=== PATIENT | female | born 1950 | race Caucasian/White ===

== ENCOUNTER 2016-12-15 17:32 | Emergency (ER) | payer MEDICARE, BC ==
[~2016-12-15] VITALS: Ht 154.9 cm; Wt 83.0 kg
[~2016-12-15 17:32] MED LIST: ALLOPURINOL100 MG PO; ATENOLOL100 MG OR; DEPAKOTE250 MG PO; FUROSEMIDE 40MG40 M1 PO; LIPITOR40 M1 PO; LOTREL 10 MG-401 CAP PO; MYSOLINE50 MG PO; PREMARIN0.625 MG PO; WELLBUTRIN XL150 MG PO
[2016-12-15] MEDS ORDERED: DEPAKOTE ER250 MG PO (17:53)
--- NOTE | 2016-12-15 17:53 | Emergency Room Report ---
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 Clinical Suspician of Infection? Mental Status: Sepsis Risk: Have you (or family members/close friends) recently traveled outside the [place]? If Yes, where/when: Have you had exposure to infectious disease within the past month? TB? Other? Specify: 66 years old white female with seizure claims that she has fallen out of bed yesterday. She complains of low back pain and a bruised LEFT foot. She claims that she is unable to walk because her knees give out. She denies having chest pain that was breathing on head injury. She denies having neck pain. She requested to be seen by the ER. Source patient, RN notes reviewed, family Exam Limitations no limitations ALLERGIES Coded Allergies: Sulfa (Sulfonamide Antibiotics) (12/15/16) Home Medications Reported Medications Primidone (Mysoline) 50 MG PO QHS AMLODIPINE BESYLATE/BENAZEPRIL (Lotrel 10-40 MG Capsule) 1 CAP PO DAILY Atenolol (Atenolol) 100 MG OR DAILY Atorvastatin Calcium (Lipitor 40MG) 40 MG PO DAILY Conjugated Estrogens (Premarin) 0.625 MG PO DAILY Allopurinol 100 MG PO DAILY BUPROPION HCL (Wellbutrin XL 150MG) 150 MG PO DAILY Divalproex Sodium (Depakote) 500 MG PO TID Furosemide 40 MG PO DAILY #30 Divalproex Sodium (Depakote ER) 250 MG PO DAILY History Medical History General Angina: Yes [place]: No Hypertension? Yes Hyperlipidemia? Yes CHF? No COPD? No Asthma? No Hernia? No CVA? No Seizures? Yes Diabetes? No UTI? No Stones? No GB Disease: No Hepatitis? No Cataracts? Yes Glaucoma? No MRSA? No TB? No Cancer? No Immunization Hx DT/Tetanus > 10 YRS Flu THISFLUSEA Pneumonia REFUSES Surgical Hx Previous Surgery?Y HYSTERECTOMY TUBES IN EARS TONSILS REMOVED Family History Family Hx Diabetes Yes CAD Yes Hypertension Yes Hyperlipidemia Yes Cancer Yes TB No Social History Alcohol Alcohol: No Review of Systems All Other Systems Reviewed and Negative Constitutional no symptoms reported Eyes no symptoms reported ENT no symptoms reported. Respiratory no symptoms reported Cardiovascular no symptoms reported Gastrointestinal no symptoms reported Genitourinary no symptoms reported. Musculoskeletal see HPI, back pain, other (LEFT foot swelling and bruisin) Skin no symptoms reported Psychiatric/Neurological no symptoms reported Physical Exam Vital Signs Vital Signs Date Time Temp Pulse Resp B/P Pulse O2 O2 Flow FiO2 Ox Delivery Rate 12/15 1850 18 12/15 1743 98.0 66 18 / 100 No signs of injuries. Central alopecia. ([facility]) - WBC >12,000 or <4,000 or 10% bands? 2 or more SIRS Criteria Met? B/P: MAP: Creatinine >2.0? UA output<0.5ml/kg/hr for 2 hrs? Platelet count >100,000? Lactate >2.0mmol/1? INR >1.2 or PTT > than 60 sec? Evidence of Organ Dysfunction? Provider documented clinical suspician of infection? Sepsis Criteria Count: Sepsis Risk: General Appearance normal appearance, WD/WN, no apparent distress (the patient provided history) Eye Exam - bilateral eye normal exam, bilateral eye PERRL, bilateral eye EOMI Ear, Nose, Throat hearing grossly normal, normal ENT inspection Neck normal inspection (normal cervical spine tenderne), non-tender, supple, full range of motion Respiratory Status Yes: trachea midline, chest symmetrical, non tender chest. No: respiratory distress. Lung Sounds bilateral: normal breath sounds, lungs clear. Cardiovascular normal exam, regular rate/rhythm, no peripheral edema, no gallop, no JVD, no murmur, no rub, normal peripheral pulses Peripheral Pulses Pulses normal Yes Gastrointestinal normal bowel sounds, normal exam, non tender, soft, no organomegaly Back normal inspection, no CVA tenderness, no vertebral tenderness, lumbar spine tenderness Extremities non-tender, normal range of motion, normal inspection, swelling, large bruising and swelling on the dorsum of the LEFT foot Strength 5 Upper Ext (L), 5 Upper Ext (R), 5 Lower Ext (L), 5 Lower Ext (R) Rectal deferred Nurse present during exam? 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 Reflexes Reflexes normal Yes Mental status normal mood/affect Skin intact, normal color, warm/dry Lymphatic no adenopathy Medical Decision Making LABS/Meds/Orders Pt receiving controlled substance in ED? No Results/Orders Laboratory Tests 12/15/160: B-Natriuretic Peptide 573 H 12/15/16 1900: Sodium 142, Potassium 3.7, Chloride 107, Carbon Dioxide 25, BUN 22 H, Creatinine 1.1 H, Estimated Creat Clear 67, Estimated GFR (MDRD) 50 L, Glucose 107 H, Calcium 9.1, Total Bilirubin 0.5, AST 36, ALT 23, Alkaline Phosphatase 48, Troponin I < 0.02, Total Protein 6.7, Albumin 3.5, Globulin 3.2, Albumin/ Globulin Ratio 1.1, WBC 8.4, RBC 3.73 L, Hgb 11.7 L, Hct 34.2 L, MCV 91.9, RDW 14.4, Plt Count 180, MPV 8.2, Gran % 76.0, Gran # 6.4, Lymphocytes % 15.9, Monocytes % 7.4, Eosinophils % 0.2, Basophils % 0.4, Lymphocytes # 1.3, Monocytes # 0.6, Eosinophils # 0.0, Basophils # 0.0, PUBS MCHC 34.3, MCH 31.5 H , Valproic Acid 55.5 12/15/16 1745: Sodium Cancelled, Potassium Cancelled, Chloride Cancelled, Carbon Dioxide Cancelled, BUN Cancelled, Creatinine Cancelled, Estimated Creat Clear Cancelled, Estimated GFR (MDRD) Cancelled, Glucose Cancelled, Calcium Cancelled, Total Bilirubin Cancelled, AST Cancelled, ALT Cancelled, Alkaline Phosphatase Cancelled, Troponin I Cancelled, Total Protein Cancelled, Albumin Cancelled, Globulin Cancelled, Albumin/Globulin Ratio Cancelled Current Medication Orders Sig/Humberto Start time Last Medication Dose Route Stop Time Status Admin Ketorolac 30 MG ONCE ONE 12/15 1844 DC 12/15 Tromethamine IM 12/15 1845 1850 Ketorolac 30 MG ONCE ONE 12/15 1844 CAN Tromethamine IM 12/15 1845 Clonidine HCl 0 .STK-MED ONE 12/16 1843 DC .ROUTE Iopamidol 75 ML ONCE ONE 12/15 1829 UNV 12/15 IV 11/05 1831 1824 Sodium Chloride 10 ML PRN PRN 12/15 1830 UNV 12/15 IV 12/15 1954 1824 Clonidine HCl 0.1 MG ONCE ONE 12/15 1800 DC 12/15 PO 12/15 1801 1849 Ketorolac 30 MG ONCE ONE 12/15 1800 CAN Tromethamine IV 12/15 180 Sodium Chloride 1,000 ML .Q1H1M 12/15 1800 DC IV 12/15 1900 Sodium Chloride 10 ML PRN PRN 12/15 1800 DC IV 12/16 1746 Orders Procedure Date/time Status DIET-NOTHING BY MOUTH 12/16 B Active ELECTROCARDIOGRAM REQUEST 12/15 1752 Active BRAIN NATRIURETIC PEPTIDE 12/15 175 Complete ORTHOSTATIC B/P 12/15 174 Active VALPROIC ACID (DEPAKENE) 12/15 1746 Complete URINALYSIS/COMPLETE 12/15 1746 Active TROPONIN I 12/15 1746 Complete COMPLETE METABOLIC PANEL 12/[address] HEAD REQ 12/[address] SCAN REQ 12/15 1744 Active PELVIS AP ONLY 12/15 1744 Active LUMBAR SPINE 5 VIEWS 12/15 1744 Active KNEE-3 VIEWS-RT 12/15 1744 Active KNEE-3 VIEWS-LT 12/15 1744 Active FOOT-LT-3 VIEWS 12/15 1744 Active CHEST-AP VIEW ONLY 12/15 1744 Active CBC WITH AUTO DIFF 12/15 1744 Complete 12 LEAD EKG-RACHEL (INITIAL) 12/15 UNK Active CM/EKG CM/EKG EKG rate, NSR, rhythm, no evid. of ischemic chgs, no ectopy, normal QRS, normal TN, normal EKG Comments Normal sinus rhythm 66/m baseline artifact no acute finding Departure Departure Time of Disposition 2004 Disposition DC Home or Self Care(routine) Clinical Impression Primary Impression: Foot fracture, left Secondary Impressions: Congestive heart disease, Non-compliance, Seizure disorder Condition STABLE Referrals Essie Carter MD Additional Instructions I discussed her findings with Dr. Carter who knows her very well, she does have multiple problems with medications that she does not take. 1- I discussed with the patietn her x rays with the foot fracture. 2- Walking boot per dr carter. 3- Dr. Carter will take care of her fracrtures as he said over the phone. 4- no lasix at this time and she will need to see Dr. dorsey in AM Discharge Counseling Counseled pt/family regarding diagnosis, test results, medications/RX, home care, follow up needs ED Critical Care Critical Care No If Critical Care minutes are documented, the time involved in the performance of seperately reportable procedures was not counted toward critical care time documented. I directly delivered medical care to this critically ill and/or injured patient. Timely evaluation and treatment was necessary to address the significant organ system(s) dysfunction present in this patient. at 2012
--- OUTSIDE RECORDS SUMMARY | 2016-12-15 18:06 | External Medical Summary Rpt | CCD ---
Author Author REGINO Address Unknown Phone Purpose Continuity of Care Document - through 2016
--- OUTSIDE RECORDS SUMMARY | 2016-12-15 18:06 | External Medical Summary Rpt | CCD ---
Author Author , REGINO Organization [employer] Address Unknown Phone [email or web address] Immunization Name Date Rout CVX Reac Dose Comm Prov Is Faci e tion ent ider Refu lity Give sed n Infl 09-2 Intr 135 0.5 Hist D049 No D049 uenz 5-20 amus mL oric 01 01 a, 17 cula al High r Info rmat Dose ion - Sour ce Unsp ecif ied Tdap 06-1 Intr 115 0.5 Hist D049 No D049 , 9-20 amus mL oric 01 01 Adso 17 cula al rbed r Info rmat ion - Sour ce Unsp ecif ied Zost 10-0 Subc 121 0.65 Hist WALM No WALM er 4-20 utan mL [facility] ART1 ART1 16 eous al 569 569 Info rmat ion - Sour ce Unsp ecif ied Infl 10-0 Intr 140 0.5 Hist WALM No WALM uenz 4-20 amus mL [facility] ART1 ART1 a, 16 cula al 569 569 P-Fr r Info ee rmat ion - Sour ce Unsp ecif ied
--- OUTSIDE RECORDS SUMMARY | 2016-12-15 18:06 | External Medical Summary Rpt ---
Author Author REGINO Saha, REGINO Saha Organization [employer] Address Unknown Phone Unavailable
--- OUTSIDE RECORDS SUMMARY | 2016-12-15 18:06 | External Medical Summary Rpt | CCD ---
Author Author , REGINO Organization REGINO Address Unknown Phone [email or web address] Immunization Name Date Rout CVX Reac Dose [...] WALM No WALM er 4-20 utan mL [facility] ART1 ART1 16 eous al 569 569 Info rmat ion - Sour ce Unsp ecif ied Infl 10-0 Intr 140 0.5 Hist WALM No WALM uenz 4-20 amus mL [facility] ART1 ART1 a, 16 cula al 569 569 P-Fr r Info ee rmat ion - Sour ce Unsp ecif ied
--- OUTSIDE RECORDS SUMMARY | 2016-12-15 18:06 | External Medical Summary Rpt | CCD ---
Author Author , REGINO LACY Address Unknown Phone [email or web address] Purpose Continuity of Care Document - through 2016
--- OUTSIDE RECORDS SUMMARY | 2016-12-15 18:06 | External Medical Summary Rpt | CCD ---
Author Author , REGINO LACY Address Unknown Phone [email or web address] Purpose Continuity of Care Document - through 2016
--- NOTE | 2016-12-15 18:53 | RADIOLOGY REPORT PS360 ---
CT CERVICAL SPINE W/O CONT HISTORY: PT FELL with cervical pain and headache. Fell out of bed Patient Age: 66 years: Female Ordering Physician: Soraya Azar MD TECHNIQUE: Helical CT scanning performed through the cervical spine with sagittal and coronal reconstructions on CT workstation. COMPARISON :None FINDINGS : The cervical spine intact intact with no fracture nor dislocation evident. Nonspecific straightening is most likely positional but can reflect muscle spasm of recent injury. Prevertebral soft tissues appear normal. C1-C2 relationships in appearance within normal limits. Facets appear intact bilaterally with some mild degenerative facet changes most evident to the right at C3/4 and to lesser degree C2/3 C4/5. Cervical spondylosis Degenerative disc changes are noted-. Most notable are the marked degenerative disc space narrowing along with marginal osteophytes at the C 4/5, and less evident C5-C6 followed by C6/7. C4/5.. Spondylosis with Diffuse posterior disc /osteophyte features. These appear slightly indents the anterior Aspect thecal sac and narrow the spinal canal yielding borderline to mild central canal stenosis. Most generous anterior marginal osteophytes most evident at this level. C5-C6. Likely small disc protrusion to the left indenting the left aspect of the thecal sac .. Again borderline to mild spinal stenosis. Minor foraminal encroachment at each of these levels bilaterally. C6/7 with disc space narrowing but no significant additional findings posteriorly. Other levels unremarkable. Apices the lungs with a fibrotic changes chronic changes noted. Likely smoker. Scattered small moderate nodes throughout the neck. IMPRESSION: No acute fracture nor subluxation cervical spine. Cervical spondylosis and Degenerative changes cervical spine as detailed in text.. Most notable degenerative disc space and spondylosis at C4/5 and C5/6.
--- NOTE | 2016-12-15 18:57 | RADIOLOGY REPORT PS360 ---
CT HEAD WITHOUT CONTRAST CT BONE WINDOWS included ORDERING PHYSICIAN : Soraya Azar MD PATIENT AGE: 66 years GENDER: Female PROCEDURE: Routine axial images headwithout contrast. Brain & bone windows HISTORY: PT FELL COMPARISON: October 2009 FINDINGS: No significant interval change since 2009 Cerebral atrophy which account for the mild prominence of the third and lateral ventricles. Vague suggestion of Minor chronic small vessel deep white matter changes likely present. Most notable surrounding the anterior horns and less evident elsewhere deep white matter matter cerebral hemispheres bilateral . No acute intracranial findings. No hemorrhage. No mass effect or mass lesion. No subdural nor extra-axial collection. Ventricles & basal cisterns appear satisfactory. Pepper & white matter patterns satisfactory. The posterior fossa appear satisfactory and unremarkable. The skull is intact. The visualized portions of the paranasal sinuses are clear. Right Mastoid air cells clear unremarkable. Opacification of the inferior left mastoid air cells reflecting a minor subtle left mastoid effusion. The more superior mastoid air cells clear on left.,. Mastoid air cells minimally developed bilaterally. Middle ear & IACs are unremarkable bilateral. IMPRESSION: No acute intracranial findings. Stable CT headCompared to 2009. Mild cerebral atrophy. . Minor left inferior mastoid effusion incidentally noted
[2016-12-15 19:07] LABS: HEMOGLOBIN 11.7 g/dL (12.2-16.2); LYMPH # 1.3 K/mm3 (0.7-4.5); LYMPH % 15.9 % (10-50.0)
[2016-12-15 19:20] LABS: BUN 22 mg/dL (7-18); GFR (ESTIMATED) 50 ML/MIN (59-)
[2016-12-15 20:31] VITALS: BP 168/87
--- NOTE | 2016-12-15 21:46 | RADIOLOGY REPORT PS360 ---
KNEE-3 VIEWS-LT HISTORY: traumaknee pain patient had seizure fell out of bed. Patient Age: 66 years: Female Ordering Physician: Soraya Azar MD TECHNIQUE: 3 views of the left knee. COMPARISON : FINDINGS No fracture nor dislocation. No significant joint effusion only scant if any increased joint fluid There are degenerative changes at the left knee with sharpening at the very earlytricompartmental marginal osteophytes . There is mild narrowing of the medial compartment on this nonweightbearing study as well. IMPRESSION: No fracture. No acute osseous findings. Degenerative changes of left knee most e vid ent at medial compartment. Narrowing of the medial compartment. Early tricompartmental marginal osteophytes
--- NOTE | 2016-12-16 10:54 | RADIOLOGY REPORT PS360 ---
CHEST-AP VIEW ONLY HISTORY: traumatrauma and seizure fell out of bed Patient Age: 66 years: Female Ordering Physician: Soraya Azar MD TECHNIQUE: AP, supine chest COMPARISON :No prior CXR available CT abdomen from June 2013 partially includes lung bases. FINDINGS Supine chest slightly rotated to the right Right lung clear unremarkable. Left chest. Crowding of markings left infrahilar region towards medial left lung base. Most likely reflecting atelectasis and chronic changes but difficult to exclude minimal infiltrate here. Upper normal markings just lateral to the left kimberly. Likely reflection of the rightward rotation the chest accentuate markings here. Mild cardiomegaly. Kimberly and mediastinal structures satisfactory. Chest wall unremarkable. No pleural effusion. No pneumothorax. IMPRESSION ---- slight rightward rotation on this CXR... ThisLikely slight accentuates markings at left chest Most likely atelectasis with mild chronic changes accentuate markings left infrahilar & medial left lung base.. Doubt minimal infiltrate.. Would benefit from follow-up respiratory symptoms
--- NOTE | 2016-12-16 11:06 | RADIOLOGY REPORT PS360 ---
FOOT-LT-3 VIEWS HISTORY: trauma fell out of bed. Pain left foot. Trauma Patient Age: 66 years: Female Ordering Physician: Soraya Azar MD TECHNIQUE: 3 views left foot COMPARISON May 2012 FINDINGS : Multiple proximal metatarsal fractures. Fracture transversing the proximal metaphysis of the second & third metatarsal most evident. . Proximal 2ndMetatarsal: there is oblique fracture transversing the proximal metaphysis. I doubt that extend intra-articular surface but difficult to determine. On plain film. More extensive fracture proximal 3rd metatarsal: Fracture proximal metaphysis of 3rd metatarsal. There appears to be a longitudinal fracture extending to the articular surface and suspect splits the base of the third MT. Up to 4.5 mm lateral distraction of fragment at lateral base fourth metatarsal.. .. There is no widening between the most proximal base of first vs second metatarsal to further suggest Lisfranc ligament injury on plain film.. . CT imaging could best delineate these fractures fragments. However if significant concern clinically regarding potential associated Lisfranc injury then consider MR The fifth and fourth metatarsal unremarkable. Toes intact. Carpals unremarkable . Prominent Diffuse soft tissue swelling throughout the foot. The 8 mm plantar calcaneal spur noted. Mild degenerative changes first MTP joint IMPRESSION: Fracture proximal second and third metatarsals. The fracture at the base proximal third metatarsal appears to be likely more extensive.- Comminuted withDistraction of fragments. I suspect this fracture does extend to/& split proximal articular surface base [id number] Prominent swelling throughout the foot
--- NOTE | 2016-12-16 11:09 | RADIOLOGY REPORT PS360 ---
KNEE-3 VIEWS-RT HISTORY: trauma right knee pain. Fell out of bed Patient Age: 66 years: Female Ordering Physician: Soraya Azar MD TECHNIQUE: 3 view right knee COMPARISON :August 2015 right knee radiograph FINDINGS There is a joint effusion suprapatella bursa. No discrete acute fracture however is evident on today's study. Osseous structures with no significant change since prior radiograph Degenerative changes at right knee with tricompartmental marginal osteophytes most evident about lateral joint and patellofemoral joint. Only subtle narrowing of the medial and lateral compartment suggested on this nonweightbearing film. IMPRESSION: No fracture. Right knee Developing degenerative changes right knee. Osseous structures with no appreciable change since 2016 right knee. . small joint effusion at suprapatellar bursa which was not seen previously
--- NOTE | 2016-12-16 11:13 | RADIOLOGY REPORT PS360 ---
PELVIS AP ONLY HISTORY: traumafell out of bed with pelvic pain due to sz . Knee pain Fracture foot Patient Age: 66 years: Female Ordering Physician: Soraya Azar MD TECHNIQUE: AP pelvis radiograph COMPARISON :CT abdomen pelvis June 2013 FINDINGS No fracture nor acute findings. Osseous pelvis intact SI joints unremarkable. Degenerative changes lower L-spine noted. AP view hips unremarkable. The osseous pelvis itself appears satisfactory with no fracture. IMPRESSION: Osseous pelvis intact no fracture Degenerative changes lower L-spine.
--- NOTE | 2016-12-16 11:39 | RADIOLOGY REPORT PS360 ---
LUMBAR SPINE 5 VIEWS HISTORY: traumafell out of bed due to seizure. Multiple injuries Patient Age: 66 years: Female Ordering Physician: Soraya Azar MD TECHNIQUE: 5 view lumbar spine series COMPARISON :CT abdomen pelvis reconstructions from June 2013. Also MRI L-spine 2010 FINDINGS No acute fracture nor subluxation. Multilevel prominent degenerative disc changes again seen with associated mild reactive endplate changes at multiple levels. This space narrowing is most pronounced at L1/2. Mild posterior hypertrophic ridging at this level. The disc space narrowing, with vacuum phenomena associated degenerative changes also seen at L2/3, L3/4 & L4/5. These appear similar to prior CT from 2013 with no significant new findings. Marginal osteophytes at each of these levels with mild posterior hypertrophic ridging likely each level. No acute fracture nor subluxation. Degenerative facet changes are also evident throughout the lower L-spine most notable L3/4, L4/5, L5/S1. Prior CT the cyst and reviewing these areas. Patient had multilevel spinal stenosis most evident at L3/4 and L4/[address] study. Lower T-spine included and unremarkable. Sacrum and SI joints unremarkable. IMPRESSION. No acute findings lumbar spine No fracture or subluxation . Multilevel degenerative disc changes lumbar spondylosis again noted findings similar to June 2013 CT abdomen reconstructions images
== END 2016-12-15 20:33 | disposition home or self-care (01) ==
LOC: ER 17:32
PROVIDERS: Emergency Medicine
DX: S92.325A Nondisplaced fracture of second metatarsal bone, left foot, initial encounter for closed fracture (principal); S92.335A Nondisplaced fracture of third metatarsal bone, left foot, initial encounter for closed fracture; W06.XXXA Fall from bed, initial encounter; Y92.009 Unspecified place in unspecified non-institutional (private) residence as the place of occurrence of the external cause; I10 Essential (primary) hypertension; R56.9 Unspecified convulsions; Z88.2 Allergy status to sulfonamides; I51.9 Heart disease, unspecified; R06.02 Shortness of breath
CPT/HCPCS: Q9967

== ENCOUNTER → 2016-12-31 | Outpatient (CLI) | payer MEDICARE, BC ==
[~2016-12-31] MED LIST changes: +DEPAKOTE ER250 MG PO
[2016-12-31 09:24] LABS: BUN 55 mg/dL (7-18)
[2016-12-31 09:27] LABS: GFR (ESTIMATED) 28 ML/MIN (59-)
--- NOTE | 2017-01-01 09:38 | RADIOLOGY REPORT PS360 ---
MRI-BRAIN W/WO HISTORY: SEIZURE DISORDER ORDERING PHYSICIAN: Liam Paul MD PATIENT AGE: 66 years COMPARISON: CT of 12/15/2016 TECHNIQUE: Standard multiplanar multiecho sequences are performed without and with gadolinium enhancement . FINDINGS: There is generalized atrophy. No midline shift or mass effect evident. No intracranial hemorrhage or hydrocephalus. Scattered periventricular and subcortical T2 white matter hyperintensities are present consistent with ischemic gliotic change from microvascular disease no evidence of acute infarction or abnormal restricted diffusion. No enhancing lesions are evident. The cerebellopontine angles, cerebellum, and brainstem are unremarkable. The hippocampal gyri are unremarkable in the temporal horns are symmetric. No pituitary mass. Optic chiasm has an unremarkable appearance. No sinus air-fluid level. There is some fluid signal intensity in the left mastoid sinus. IMPRESSION: 1. No acute intracranial findings. 2. Atrophy with chronic ischemic changes. 3. Left mastoid sinus disease
== END ==
LOC: RAD 09:04
PROVIDERS: Family Medicine
DX: G40.909 Epilepsy, unspecified, not intractable, without status epilepticus (principal)
CPT/HCPCS: A9576